=== PATIENT | male | born 1940 | race Caucasian/White ===

== ENCOUNTER 2020-05-03 14:36 | Inpatient (IN) | payer MEDICARE ==
[~2020-05-03] VITALS: Ht 180 cm; Wt 80.1 kg
[2020-05-03] VITALS (9 sets, daily range): BP systolic 105–132; BP diastolic 64–84
[2020-05-03] MEDS ORDERED: NITROGLYCERIN 2% OINT 1 GM UNIT DOSE PACKET ONE (14:58)
--- NOTE | 2020-05-03 14:58 | ED Chest Pain ---
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 He is a nonsmoker does have a history of extensive coronary disease and multiple stenting he denies cholesterol diabetes hypertension. Is not recently been ill with anything. 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 NTG SL WEB DEVELOPMENT INSTRUCTOR: No Associated Symptoms: No abdominal pain; back pain, diaphoresis; No fever/chills, No headache, No heartburn, No nausea/vomiting; shortness of breath; No syncope Allergies and Home Medications Allergies Uncoded Allergies: Pencillin (Adverse Reaction, Mild, rash, 05/03/20) Patient Home Medication List Home Medication List Reviewed: Yes Review of Systems Review of Systems Constitutional: no symptoms reported EENTM: No Symptoms Reported Respiratory: See HPI Cardiovascular: See HPI Gastrointestinal: No Symptoms Reported Genitourinary: No Symptoms Reported Musculoskeletal: no symptoms reported Skin: no symptoms reported Psychiatric/Neurological: No Symptoms Reported Past Eridgbo-Gpcfjh-Ycwhcv Hx Past Med/Social Hx: Reviewed Nursing Past Med/Soc Hx Physical Exam Vital Signs Vital Signs - First Documented 05/03/20 14:40 Temp 36.5 Pulse 69 Resp 18 B/P (MAP) 167/67 (100) Pulse Ox 97 O2 Delivery Room Air Capillary Refill : Height, Weight, BMI Height: '" Weight: lbs. oz. kg; BMI Method: General Appearance: No Apparent Distress, WD/WN HEENT: PERRL/EOMI, Normal ENT Inspection Neck: Full Range of Motion, Normal Inspection, Non Tender Respiratory: Chest Non Tender, Lungs Clear, Normal Breath Sounds, No Accessory Muscle Use, No Respiratory Distress Cardiovascular: Regular Rate, Rhythm, No Edema, No Gallop, No JVD, No Murmur, Normal Peripheral Pulses Gastrointestinal: Normal Bowel Sounds, No Organomegaly, No Pulsatile Mass, Non Tender Extremity: Normal Capillary Refill, Normal Inspection, Normal Range of Motion, Non Tender, No Calf Tenderness, No Pedal Edema Neurologic/Psychiatric: Alert, Oriented x3, No Motor/Sensory Deficits, Normal Mood/Affect Skin: Normal Color, Warm/Dry Lymphatic: No Adenopathy Progress/Results/Core Measures Results/Orders Lab Results Laboratory Tests Test 05/03/20 14:55 05/03/20 18:15 Range/Units White Blood Count 9.9 4.3-11.0 10^3/uL Red Blood Count 4.96 4.35-5.85 10^6/uL Hemoglobin 14.9 13.3-17.7 G/DL Hematocrit 44 40-54 % Mean Corpuscular Volume 88 80-99 FL Mean Corpuscular Hemoglobin 30 25-34 PG Mean Corpuscular Hemoglobin Concent 34 32-36 G/DL Red Cell Distribution Width 15.1 H 10.0-14.5 % Platelet Count 328 130-400 10^3/uL Mean Platelet Volume 9.2 7.4-10.4 FL Immature Granulocyte % (Auto) 0 % Neutrophils (%) (Auto) 72 42-75 % Lymphocytes (%) (Auto) 15 12-44 % Monocytes (%) (Auto) 10 0-12 % Eosinophils (%) (Auto) 2 0-10 % Basophils (%) (Auto) 1 0-10 % Neutrophils # (Auto) 7.1 1.8-7.8 X 10^3 Lymphocytes # (Auto) 1.5 1.0-4.0 X 10^3 Monocytes # (Auto) 1.0 0.0-1.0 X 10^3 Eosinophils # (Auto) 0.2 0.0-0.3 10^3/uL Basophils # (Auto) 0.1 0.0-0.1 10^3/uL Immature Granulocyte # (Auto) 0.0 0.0-0.1 10^3/uL Prothrombin Time 13.0 12.2-14.7 SEC INR Comment 1.0 0.8-1.4 Activated Partial Thromboplast Time 28 24-35 SEC Sodium Level 138 135-145 MMOL/L Potassium Level 4.3 3.6-5.0 MMOL/L Chloride Level 103 98-107 MMOL/L Carbon Dioxide Level 24 21-32 MMOL/L Anion Gap 11 5-14 MMOL/L Blood Urea Nitrogen 23 H 7-18 MG/DL Creatinine 1.04 0.60-1.30 MG/DL Estimat Glomerular Filtration Rate > 60 BUN/Creatinine Ratio 22 Glucose Level 97 70-105 MG/DL Calcium Level 9.3 8.5-10.1 MG/DL Corrected Calcium 9.1 8.5-10.1 MG/DL Magnesium Level 2.0 1.6-2.4 MG/DL Total Bilirubin 0.5 0.1-1.0 MG/DL Aspartate Amino Transf (AST/SGOT) 18 5-34 U/L Alanine Aminotransferase (ALT/SGPT) 12 0-55 U/L Alkaline Phosphatase 82 40-136 U/L Troponin I < 0.30 < 0.30 <0.30 NG/ML Pro-B-Type Natriuretic Peptide 339.7 H <75.0 PG/ML Total Protein 7.6 6.4-8.2 GM/DL Albumin 4.3 3.2-4.5 GM/DL Lipase 50 8-78 U/L My Orders Orders - WILSON,MAYCO B DO Nitroglycerin Ointment (Nitrobid Ointme (05/03/20 14:58) Cbc With Automated Diff (05/03/20 14:59) Magnesium (05/03/20 14:59) Chest 1 View Ap/Pa Only (05/03/20 14:59) Ekg Tracing (05/03/20 14:59) Comprehensive Metabolic Panel (05/03/20 14:59) Protime With Inr (05/03/20 14:59) Partial Thromboplastin Time (05/03/20 14:59) O2 (05/03/20 14:59) Monitor-Rhythm Ecg Trace Only (05/03/20 14:59) Ed Iv/Invasive Line Start (05/03/20 14:59) Lipase (05/03/20 14:59) Troponin I Fs (05/03/20 14:59) Probnp Fs (05/03/20 14:59) Troponin I Fs (05/03/20 17:00) Nitroglycerin Ointment (Nitrobid Ointme (05/03/20 15:00) Morphine Injection (Morphine Injection (05/03/20 17:25) Morphine Injection (Morphine Injection (05/03/20 17:25) Heparin (Bolus Per Protocol) (Heparin (B (05/03/20 17:45) Ticagrelor Tablet (Brilinta Tablet) (05/03/20 17:45) Nitro Drip 41798 Mcg/D5w (Nitroglycerin (05/03/20 17:45) Heparin Drip 99012 Unit/500ml (Heparin (05/03/20 17:38) Heparin (Bolus Per Protocol) (Heparin (B (05/03/20 17:38) Medications Given in ED Current Medications Medications Dose Ordered Sig/Susie Route Start Time Stop Time Status Last Admin Dose Admin Heparin Sodium (Porcine) HEPARIN BOLUS ACS PROTOC... 1738 ONCE IV 05/03/20 17:38 05/03/20 17:40 DC 05/03/20 17:58 5,000 UNIT Heparin Sodium/ Dextrose 500 ml @ 0 mls/hr Q0M ONCE IV 05/03/20 17:38 05/03/20 17:40 DC 05/03/20 18:01 20 MLS/HR Morphine Sulfate 10 mg STK-MED ONCE .ROUTE 05/03/20 17:25 05/03/20 17:27 DC 05/03/20 17:29 10 MG Nitroglycerin 1 inch ONCE ONCE TOP 05/03/20 15:00 05/03/20 15:03 DC 05/03/20 15:10 1 INCH Ticagrelor 180 mg ONCE ONCE PO 05/03/20 17:45 05/03/20 17:46 DC 05/03/20 17:57 180 MG Vital Signs/I&O 05/03/20 05/03/20 05/03/20 05/03/20 14:40 14:40 17:56 18:09 Temp 36.5 36.2 Pulse 69 65 67 Resp 18 18 B/P (MAP) 167/67 (100) 115/63 111/63 Pulse Ox 97 98 O2 Delivery Room Air Room Air Room Air Progress Progress Note : Progress Note [id number] patient 79-year-old with history of severe coronary disease presents with 2 episodes of chest pain today this latest one was still ongoing discomfort mild radiates into both arms with diaphoresis shortness of breath does radiate into his back. Differential most likely ACS possible GERD no evidence of her wrist red flags for TAA plan will be troponin and EKG risk stratification transfer for admission. Initial ECG Impression Date: May 03, 2020 Initial ECG Impression Time: 14:44 Initial ECG Rhythm: Normal Sinus Initial ECG Impression: Nonspecific Changes Comment EKG 1444 sinus rhythm at 67 there is a nondiagnostic interventricular conduction delay which she features right bundle branch block properties there is no ST segment elevation there is evidence of old inferior SC. There is no old tracing for comparison. Departure Communication (Admissions) Patient is an 79-year-old with chest pain 2 episodes radiating down his arms as diaphoresis second episode failing to go away with rest t-test taken multiple aspirins today for this without relief here he had 3 out of 10 chest pain initially blood pressure 160 was given nitro paste this resolved all his symptoms. EKG has right bundle branch block with nondiagnostic changes a stirrup first troponin is normal. Heart score is but Simmon the moderate range of 4+ therefore he will be referred for admission initially the patient had requested [facility] they were contacted at 1610 with no beds he then wanted to go to [facility] they were contacted at 1620 they had no beds after further discussion the patient declined to go to [facility] or [facility] and was agreeable to go to [facility]. Impression Primary Impression: Unstable angina pectoris Disposition: 09 ADMITTED INPATIENT Condition: Improved Admissions Decision to Admit Reason: Admit from ER (General) Decision to Admit/Date: May 03, 2020 Time/Decision to Admit Time: 16:31 Transfer Transfer Reason: Exceeds level of care Time Spoke to Accepting Phy: 16:31 Transfer Progress Notes 1635 return call excepts an admission request cardiology consultation for further medical management Left page message for Dr. Michelle and to return my [id number] Transfer Facility: [facility] Method of Transfer: EMS Departure-Patient Inst. Decision time for Depature: 16:30 MAYCO WILSON DO May 03, 2020 14:58
[2020-05-03] MEDS ORDERED: NITROGLYCERIN 2% OINT 1 GM UNIT DOSE PACKET TOP ONE (15:00)
--- NOTE | 2020-05-03 15:20 | Diagnostic Imaging Report ---
INDICATION: Chest pain, back pain. EXAMINATION: Single view of the chest was obtained. FINDINGS: There is no alveolar consolidation. Heart size within normal limits. There is borderline vascular congestion. There is mild symmetrical air trapping. There is some scattered calcified pulmonary granulomata. Hilar and mediastinal contours unremarkable. There is no free air beneath the diaphragms. IMPRESSION: Air trapping and likely COPD but no acute appearing cardiopulmonary abnormality. Dictated by: Dictated on workstation # [id number]
[2020-05-03 15:23] LABS: BASOPHILS # (AUTO) 0.1 10^3/uL (0.0-0.1); BASOPHILS % (AUTO) 1 % (0-10); EOSINOPHILS # (AUTO) 0.2 10^3/uL (0.0-0.3); EOSINOPHILS % (AUTO) 2 % (0-10); HEMATOCRIT 44 % (40-54); HEMOGLOBIN 14.9 G/DL (13.3-17.7); LYMPHOCYTES # (AUTO) 1.5 X 10^3 (1.0-4.0); LYMPHOCYTES % (AUTO) 15 % (12-44); MEAN CORPUSCULAR HEMOGLOBIN 30 PG (25-34); MEAN CORPUSCULAR HGB CONC 34 G/DL (32-36); MEAN CORPUSCULAR VOLUME 88 FL (80-99); MEAN PLATELET VOLUME 9.2 FL (7.4-10.4); MONOCYTES % (AUTO) 10 % (0-12); NEUTROPHILS # (AUTO) 7.1 X 10^3 (1.8-7.8); NEUTROPHILS % (AUTO) 72 % (42-75); PLATELET COUNT 328 10^3/uL (130-400); WHITE BLOOD COUNT 9.9 10^3/uL (4.3-11.0)
[2020-05-03 15:41] LABS: BUN/CREATININE RATIO 22; CALCIUM 9.3 MG/DL (8.5-10.1); CARBON DIOXIDE 24 MMOL/L (21-32); CHLORIDE 103 MMOL/L (98-107); CREATININE SERUM 1.04 MG/DL (0.60-1.30); GFR ESTIMATED > 60; GLUCOSE 97 MG/DL (70-105); POTASSIUM 4.3 MMOL/L (3.6-5.0); SODIUM 138 MMOL/L (135-145)
[2020-05-03 15:42] LABS: ALANINE AMINOTRANSFERASE 12 U/L (0-55); ALBUMIN 4.3 GM/DL (3.2-4.5); ALKALINE PHOSPHATASE 82 U/L (40-136); BILIRUBIN,TOTAL 0.5 MG/DL (0.1-1.0); LIPASE 50 U/L (8-78); TOTAL PROTEIN 7.6 GM/DL (6.4-8.2)
[2020-05-03] MEDS ORDERED: morphine INJ 10 MG/ML 1ML (SYR OR VIAL) ONE (17:25)
[2020-05-03] MEDS ORDERED: morphine INJ 10 MG/ML 1ML (SYR OR VIAL) IVP STA (17:25)
[2020-05-03] MEDS ORDERED: HEParin 1000 UNIT/ML (10ML VIAL) FOR BOLUS IV ONE (17:38)
[2020-05-03] MEDS ORDERED: HEParin DRIP 25000 UNIT/500ML 500 ML IV ONE (17:38)
[2020-05-03] MEDS ORDERED: TICAGRELOR 90 MG TABLET (BRILINTA) PO ONE (17:45)
[2020-05-03] MEDS ORDERED: HEParin 1000 UNIT/ML (10ML VIAL) FOR BOLUS IV SCH (17:45)
[2020-05-03] MEDS ORDERED: NITRO DRIP 25000 MCG/D5W 250 ML IV SCH (17:45)
[2020-05-03] MEDS ORDERED: HEParin DRIP 25000 UNIT/500ML 500 ML IV SCH (20:27)
[2020-05-03] MEDS ORDERED: HEParin 1000 UNIT/ML (10ML VIAL) FOR BOLUS IV PRN (20:30)
[2020-05-03] MEDS ORDERED: RT-ALBUTEROL SULF 2.5 MG/3 ML PRE-MIX VIAL INH PRN (20:30)
[2020-05-04] VITALS (26 sets, daily range): BP systolic 94–139; BP diastolic 50–96
[2020-05-04] MEDS: NITROGLYCERIN DRIP 25 MG/250 ML D5W (PRE-MIX) IV SCH ×2 (00:12→20:16)
[2020-05-04] MEDS ORDERED: LIDOCAINE UROJET 2% GEL 10 ML PKG ONE (00:28)
[2020-05-04] MEDS ORDERED: LIDOCAINE UROJET 2% GEL 10 ML PKG TOP ONE (02:45)
[2020-05-04] MEDS ORDERED: diphenhydrAMINE 50 MG/ML INJ (BENADRYL) IVP ONE (02:45)
[2020-05-04 03:58] LABS: BASOPHILS # (AUTO) 0.1 10^3/uL (0.0-0.1); BASOPHILS % (AUTO) 1 % (0-10); EOSINOPHILS # (AUTO) 0.1 10^3/uL (0.0-0.3); EOSINOPHILS % (AUTO) 1 % (0-10); HEMATOCRIT 40 % (40-54); HEMOGLOBIN 13.1 g/dL (13.3-17.7); LYMPHOCYTES # (AUTO) 1.4 10^3/uL (1.0-4.0); LYMPHOCYTES % (AUTO) 12 % (12-44); MEAN CORPUSCULAR HEMOGLOBIN 30 pg (25-34); MEAN CORPUSCULAR HGB CONC 33 g/dL (32-36); MEAN CORPUSCULAR VOLUME 90 fL (80-99); MEAN PLATELET VOLUME 9.1 fL (9.0-12.2); MONOCYTES # (AUTO) 0.9 10^3/uL (0.0-1.0); MONOCYTES % (AUTO) 8 % (0-12); NEUTROPHILS # (AUTO) 9.5 10^3/uL (1.8-7.8); NEUTROPHILS % (AUTO) 79 % (42-75); PLATELET COUNT 255 10^3/uL (130-400)
--- NOTE | 2020-05-04 04:04 | Pulmonary Consultation ---
History of Present Illness History of Present Illness Date Seen by Provider: May 04, 2020 Time Seen by Provider: 04:02 Date of Admission Allergies and Home Medications Allergies Uncoded Allergies: Pencillin (Adverse Reaction, Mild, rash, 05/03/20) Past Oltugwf-Aimioc-Srgrpa Hx Past Med/Social Hx: Reviewed Nursing Past Med/Soc Hx Patient Social History Alcohol Use: Denies Use Recreational Drug Use: No Smoking Status: Never a Smoker Recent Foreign Travel: No Contact w/Someone Who Travel: No Recent Infectious Disease Expo: No Recent Hopitalizations: No Physical Abuse: No Sexual Abuse: No Mistreated: No Fear: No Immunizations Up To Date Date of Pneumonia Vaccine: Mar 07, 2017 Seasonal Allergies Seasonal Allergies: No Past Medical History Surgeries: Yes Coronary Stent Respiratory: No Cardiac: No Neurological: No Genitourinary: No Gastrointestinal: No Musculoskeletal: No Endocrine: No HEENT: No Cancer: No Psychosocial: No Integumentary: No Blood Disorders: No Review of Systems Time Seen by Provider: 04:02 Sepsis Event Evaluation Height, Weight, BMI Height: '" Weight: lbs. oz. kg; 25.37 BMI Method: Exam Exam Vital Signs Date Time Temp Pulse Resp B/P (MAP) Pulse Ox O2 Delivery O2 Flow Rate FiO2 05/04/20 03:31 36.9 05/04/20 01:00 60 05/04/20 00:00 98 Room Air 05/03/20 23:20 36.6 05/03/20 20:16 98 Room Air 05/03/20 20:09 67 98 05/03/20 19:38 66 05/03/20 18:09 36.2 67 18 111/63 98 Room Air 05/03/20 17:56 65 115/63 05/03/20 14:40 36.5 69 18 167/67 (100) 97 Room Air 05/03/20 14:40 Room Air I & O 05/04/20 07:00 Intake Total 200 ml Output Total 400 ml Balance -200 ml Height & Weight Height: '" Weight: lbs. oz. kg; 25.37 BMI Method: General Appearance: No Apparent Distress, WD/WN HEENT: PERRL/EOMI, Normal ENT Inspection Neck: Full Range of Motion, Normal Inspection, Non Tender Respiratory: Chest Non Tender, Lungs Clear, Normal Breath Sounds, No Accessory Muscle Use, No Respiratory Distress Cardiovascular: Regular Rate, Rhythm, No Edema, No Gallop, No JVD, No Murmur, Normal Peripheral Pulses Capillary Refill: Less Than 3 Seconds Extremity: Normal Capillary Refill, Normal Inspection, Normal Range of Motion, Non Tender, No Calf Tenderness, No Pedal Edema Neurologic/Psychiatric: Alert, Oriented x3, No Motor/Sensory Deficits, Normal Mood/Affect Skin: Normal Color, Warm/Dry Lymphatic: No Adenopathy Results Lab Laboratory Tests 05/03/20 14:55 Assessment/Plan Assessment/Plan Acute CP r/o USA -- CP improved with Nitro -Troponin neg x 2 -Currently on Hep and nitro gtt . -Currently on RA HX of CAD BANDAR ROLON DO May 04, 2020 04:04
[2020-05-04 04:06] LABS: CHLORIDE 104 MMOL/L (98-107); POTASSIUM 3.7 MMOL/L (3.6-5.0); SODIUM 138 MMOL/L (135-145)
[2020-05-04 04:07] LABS: CALCIUM 8.8 MG/DL (8.5-10.1)
[2020-05-04 04:08] LABS: GLUCOSE 137 MG/DL (70-105)
[2020-05-04 04:09] LABS: CARBON DIOXIDE 24 MMOL/L (21-32)
[2020-05-04 04:11] LABS: PHOSPHORUS 3.2 MG/DL (2.3-4.7)
[2020-05-04 04:12] LABS: BUN/CREATININE RATIO 25; CREATININE SERUM 0.93 MG/DL (0.60-1.30); GFR ESTIMATED > 60
[2020-05-04 04:14] LABS: MAGNESIUM 2.1 MG/DL (1.6-2.4)
[2020-05-04] MEDS ORDERED: FLU QUAD HIGH DOSE 240 MCG/0.7 ML 2020-21 (FLUZONE) IM ONE (07:00)
[2020-05-04] MEDS: ASPIRIN 81 MG CHEW (CHILDREN'S ASA) PO SCH ×2 (09:05→11:37)
[2020-05-04] MEDS: TICAGRELOR 90 MG TABLET (BRILINTA) PO SCH ×3 (09:05→20:17)
--- NOTE | 2020-05-04 09:56 | History & Physical-Hospitalist ---
History of Present Illness HPI/Chief Complaint Pt is a 79-year-old male with past medical history of coronary artery disease status post multiple stents who presented to the emergency department due to chest pain. he states 2 days ago he did a lot of heavy lifting lifting something up to 150 pounds. 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 He states it radiated to his back he was diaphoretic and short of breath. This prompted him to seek evaluation in the emergency department. His pain resolved with nitroglycerin and morphine. he states he is currently mostly pain-free. His only request now is to have something to drink. Source: patient Date Seen 05/04/20 Time Seen by a Provider: 09:50 Attending Physician Vincent Michelle MD PCP No,Local Physician Referring Physician Date of Admission May 03, 2020 at 19:38 Home Medications & Allergies Home Medications Reviewed patient Home Medication Reconciliation performed by pharmacy medication reconciliations solar installer technician and/or nursing. Patients Allergies have been reviewed. Allergies Allergies Uncoded Allergies Pencillin ( Adverse Reaction, Mild, rash, 05/03/20) Past Ovqwnhb-Kubwrz-Gbnaya Hx Past Med/Social Hx: Reviewed Nursing Past Med/Soc Hx Patient Social History Alcohol Use: Denies Use Recreational Drug Use: No Smoking Status: Never a Smoker Recent Foreign Travel: No Contact w/other who traveled: No Recent Hopitalizations: No Recent Infectious Disease Expo: No Immunizations Up To Date Date of Pneumonia Vaccine: Mar 07, 2017 Seasonal Allergies Seasonal Allergies: No Past Medical History Surgeries: Coronary Stent Cardiac: Coronary Artery Disease History of Blood Disorders: No Family History Reviewed Nursing Family Hx Review of Systems Constitutional: No chills; diaphoresis; No fever Respiratory: see HPI, short of breath Cardiovascular: chest pain; No edema; Hx of Intervention; No palpitations Gastrointestinal: abdominal pain; No constipation, No diarrhea, No nausea, No vomiting Genitourinary: no symptoms reported Musculoskeletal: no symptoms reported Skin: no symptoms reported Psychiatric/Neurological: No Symptoms Reported Physical Exam Physical Exam Vital Signs Vital Signs - First Documented 05/03/20 14:40 Temp 36.5 Pulse 69 Resp 18 B/P (MAP) 167/67 (100) Pulse Ox 97 O2 Delivery Room Air Capillary Refill : Less Than 3 Seconds Height, Weight, BMI Height: '" Weight: lbs. oz. kg; 25.37 BMI Method: General Appearance: No Apparent Distress, WD/WN HEENT: PERRL/EOMI, Moist Mucous Membranes Neck: Normal Inspection, Supple Respiratory: Lungs Clear, No Accessory Muscle Use, No Respiratory Distress Cardiovascular: Regular Rate, Rhythm, No Murmur Gastrointestinal: Normal Bowel Sounds, Non Tender, Soft Extremity: Normal Capillary Refill, No Calf Tenderness, No Pedal Edema Neurologic/Psychiatric: Alert, Oriented x3, Normal Mood/Affect Skin: Normal Color, Warm/Dry Results Results/Procedures Labs Laboratory Tests 05/03/20 14:55 05/04/20 03:45 Patient resulted labs reviewed. Imaging: Reviewed Imaging Report Imaging [facility], [place] NAME: CHAITANYA MILLER [facility] REC#: [id number] PT STATUS: REG ER : 1940 PHYSICIAN: MAYCO WILSON DO ADMIT DATE: 05/03/20/ER FS Signed Date of Exam:05/03/20 CHEST 1 VIEW AP/PA ONLY INDICATION: Chest pain, back pain. EXAMINATION: Single view of the chest was obtained. FINDINGS: There is no alveolar consolidation. Heart size within normal limits. There is borderline vascular congestion. There is mild symmetrical air trapping. There is some scattered calcified pulmonary granulomata. Hilar and mediastinal contours unremarkable. There is no free air beneath the diaphragms. IMPRESSION: Air trapping and likely COPD but no acute appearing cardiopulmonary abnormality. Dictated by: Dictated on workstation # [id number] Dict: 05/03/20 1514 Trans: 05/03/20 1526 [facility] [id number] Interpreted by: CHAITANYA BILLINGSLEY Electronically signed by: CHAITANYA BILLINGSLEY 05/03/20 1526 Assessment/Plan Admission Diagnosis Chest pain Admission Status: Inpatient Order (span 2 midnights) Reason for Inpatient Admission: see below Assessment and Plan Chest pain CAD Cardiology consulted, appreciate recs DAPT ordered Nitro and heparin gtt ordered troponin negative x2 Echo pending DVt ppx: Lovenox gtt Clinical Quality Measures AMI/AHF: ASA po Prior to arrival: Yes DVT/VTE Risk/Contraindication: Risk Factor Score Per Nursin RFS Level Per Nursing on Admit: 4+=Very High VINCENT MICHELLE MD May 04, 2020:56
[2020-05-04] MEDS ORDERED: PANTOPRAZOLE 40 MG (PROTONIX) VIAL IV ONE (10:15)
--- NOTE | 2020-05-04 10:23 | Diagnostic Imaging Report ---
EXAMINATION: Chest radiograph, portable AP view. DATE: 05/04/2020 3:48 AM hours. INDICATION: 79-year-old male, chest pain. COMPARISON: May 03, 2020. FINDINGS: Stable overall appearance of the cardiomediastinal silhouette. There is no identified pneumothorax. There is no large pleural effusion. There is no identified focal airspace consolidation. IMPRESSION: No identified acute cardiopulmonary abnormality. Dictated by: Dictated on workstation # [id number]
[2020-05-04] MEDS ORDERED: HEParin (CATH LAB) 2,000 ML IV ONE (11:02)
[2020-05-04] MEDS ORDERED: LIDOCAINE 1% INJ 20 ML 20 ML VIAL ONE (11:02)
[2020-05-04] MEDS ORDERED: MIDAZOLAM 5 MG/5 ML (VERSED) VIAL ONE (11:05)
[2020-05-04] MEDS ORDERED: fentaNYL INJECTION 100 MCG/2 ML AMP ONE (11:05)
--- NOTE | 2020-05-04 11:20 | NUR ---
Dr. Jimenez in room with pt explaining risks/benefits of heart cath to pt. Heart Cath team arrived, obtained consent from pt and took pt down to labor relations supervisor.
[2020-05-04] MEDS ORDERED: NS IV 1000 ML 1,000 ML ONE (11:28)
[2020-05-04] MEDS ORDERED: HEParin 1000 UNIT/ML (10ML VIAL) FOR BOLUS ONE (11:28)
[2020-05-04] MEDS ORDERED: VERAPAMIL 5 MG/2 ML (CALAN) VIAL IV ONE (11:28)
[2020-05-04] MEDS ORDERED: NITRO DRIP 25000 MCG/D5W 250 ML IV ONE (11:29)
[2020-05-04] MEDS ORDERED: NS IV 1000 ML 1,000 ML IV SCH (11:45)
[2020-05-04] MEDS ORDERED: TICAGRELOR 90 MG TABLET (BRILINTA) PO ONE (12:23)
[2020-05-04] MEDS ORDERED: EPTIFIBATIDE BOLUS 20 ML IV ONE (12:36)
[2020-05-04] MEDS ORDERED: niCARdipine 25 MG/10 ML (CARDENE) AMP IV ONE (12:38)
[2020-05-04] MEDS ORDERED: NS (IVPB) 250 ML ONE (12:38)
[2020-05-04] MEDS ORDERED: EPTIFIBATIDE DRIP 100 ML IV ONE (12:50)
--- NOTE | 2020-05-04 12:58 | Cardiac Procedure Note-CS/ASA ---
Pre-Procedure Note Pre-Op Procedure Note H&P Reviewed The H&P was reviewed, patient examined and no changes noted. Date H&P Reviewed: May 04, 2020 Time H&P Reviewed: 11:30 Conscious Sedation Pre-Proced Time 11:30 ASA Score 3 For ASA 3 and 4: Consider anesthesia and medical clearance. Also, for patients with a history of failed moderate sedation consider anesthesia. Airway Lungs Heart ASA score ASA 1: a normal healthy patient ASA 2: a patient with a mild systemic disease (mid diabetes, controlled hypertension, obesity ASA 3: a patient with a severe systemic disease that limits activity (angina, COPD, prior Myocardial infarction) ASA 4: a patient with an incapacitating disease that is a constant threat to life (CHF, renal failure) ASA 5: a moribund patient not expected to survive 24 hrs. (ruptured aneurysm) ASA 6: a declared brain- patient whose organs are being harvested. For emergent operations, add the letter E after the classification Mallampati Classification Grade 1 Sedation Plan Analgesia, Amnesia, Plan communicated to team members, Discussed options with patient/fam, Discussed risks with patient/fam The patient is an appropriate candidate to undergo the planned procedure, sedation, and anesthesia. The patient immediately re-assessed prior to indication. Melinda BROWER MD May 04, 2020 12:58
--- NOTE | 2020-05-04 12:58 | Consultation-Cardiology ---
HPI-Cardiology Cardiology Consultation: Date of Consultation 05/04/20 Date of Admission Attending Physician Lillie Michelle MD Admitting Physician No,Local Physician Consulting Physician Melinda JIMENEZ MD HPI: Time Seen by a Provider: 11:30 Chief Complaint: chest pain This is a 79 year old male patient of Dr Garcia from [place] who presented with prolonged episode of Chest pain with diaphoresis and radiation to both arms. Initial severe pain, 9 to 10/10 which improved with nitroglycerin and morphine. substernal associated shortness of breath. Initially started with exertion. He denies active smoking. No pertinent family history. He does have history of CAD with multiple stents. initially chest pain improved with nitroglycerin and morphine, however he continued to have mild discomfort overnight therefore was given aspirin, Brili nta bolus, heparin infusion and nitroglycerin infusion and transferred to the ICU. First 2 sets troponin were negative Review of Systems-Cardiology Review of Systems Constitutional: As described under HPI; No As described under HPI, No no symptoms reported, No chills, No fever, No lightheadedness Eyes: No As described under HPI, No no symptoms reported, No blindness, No blurred vision, No contact lenses, No drainage, No decreased acuity, No foreign body sensation, No pain, No vision change Ears/Nose/Throat: No As described under HPI, No no symptoms reported, No chronic hearing loss, No ear discharge, No ear pain, No nasal drainage, No ulcerations Respiratory: No no symptoms reported; As described under HPI; No As described under HPI, No cough, No orthopnea; shortness of breath; No SOB with excertion Cardiovascular: No no symptoms reported; As described under HPI; No As describ ed under HPI; chest pain; No edema, No irregular heart rate, No lightheadedness, No palpitations Gastrointestinal: No no symptoms reported, No As described under HPI, No abdomen distended, No abdominal pain, No blood streaked bowels, No constipation, No diarrhea, No nausea, No vomiting, No stool coloration changes Genitourinary: No As described under HPI, No burning, No dysuria, No discharge, No frequency, No flank pain, No hematuria, No urgency Skin: No rash, No skin related problems, No ulcerations Psychiatric/Neurological: No anxiety, No depression, No seizure, No focal weakness, No syncope Hematologic: No bleeding abnormalities [id number] Hx Patient Social History Alcohol Use: Denies Use Recreational Drug Use: No Smoking Status: Never a Smoker Recent Foreign Travel: No Recent Infectious Disease Expo: No Hospitalization with Isolation: Denies Immunizations Up To Date Date of Pneumonia Vaccine: Mar 07, 2017 Past Medical History PMH As described under Assessment. Allergies and Home Medications Allergies Uncoded Allergies: Pencillin (Adverse Reaction, Mild, rash, 05/03/20) Patient Home Medication List Home Medication List Reviewed: Yes Physical Exam-Cardiology Physical Exam Vital Signs/I&O 05/04/20 05/04/20 05/04/20 05/04/20 02:00 03:00 03:31 04:00 Temp 36.9 Pulse 67 64 65 Resp 20 15 13 B/P (MAP) 100/59 (73) 101/60 (74) 105/61 (76) Pulse Ox 94 95 95 O2 Delivery Room Air Room Air Room Air 05/04/20 05/04/20 05/04/20 05/04/20 04:00 05:00 06:00 07:00 Pulse 61 62 71 Resp 18 20 B/P (MAP) 97/64 (75) 102/63 (76) Pulse Ox 98 96 96 O2 Delivery Room Air Room Air Room Air 05/04/20 05/04/20 05/04/20 05/04/20 07:00 07:45 08:00 08:00 Temp 37.2 Pulse 60 70 Resp 26 28 B/P (MAP) 94/50 (65) 110/88 (95) Pulse Ox 98 96 O2 Delivery Room Air Room Air Room Air 05/04/20 05/04/20 05/04/20 05/04/20 08:00 09:00 10:00 11:00 Pulse 68 69 66 Resp 11 16 9 B/P (MAP) 98/51 (67) 112/59 (76) 122/96 (105) Pulse Ox 98 94 94 96 O2 Delivery Room Air Room Air Room Air Room Air 05/04/20 00:00 Intake Total 200 ml Output Total 0 ml Balance 200 ml Capillary Refill : Less Than 3 Seconds Constitutional: appears stated age, AAO x 3; No apparent distress; well- developed, well-nourished HEENT: PERRL; No discharge; hearing is well preserved, oral hygience is good; No ulceration, No xanthelasmas are seen Neck: No carotid bruit; carotid pulses are 2 + bilaterally Respiratory: chest is bilaterally symmetric, lungs clear to auscultation Cardiovascular: regular rate-rhythm, S1 and S2; No diastolic murmur, No systolic murmur Gastrointestinal: soft, audible bowel sounds; No spleenomegaly Rectal: deferred Extremities: normal range of motion, non-tender, normal inspection; No clubbing, No cyanosis; no lower extremity edema bilateral; No significant edema Neurologic/Psychiatric: no motor/sensory deficits, alert, normal mood/affect, oriented x 3, power is 5/5 both on sides Skin: normal color; No rash, No ulcerations Data Review Labs Laboratory Tests 05/03/20 14:55: White Blood Count 9.9, Red Blood Count 4.96, Hemoglobin 14.9, Hematocrit 44, Mean Corpuscular Volume 88, Mean Corpuscular Hemoglobin 30, Mean Corpuscular Hemoglobin Concent 34, Red Cell Distribution Width 15.1H, Platelet Count 328, Mean Platelet Volume 9.2, Immature Granulocyte % (Auto) 0, Neutrophils (%) (Auto) 72, Lymphocytes (%) (Auto) 15, Monocytes (%) (Auto) 10, Eosinophils (%) (Auto) 2, Basophils (%) (Auto) 1, Neutrophils # (Auto) 7.1, Lymphocytes # (Auto) 1.5, Monocytes # (Auto) 1.0, Eosinophils # (Auto) 0.2, Basophils # (Auto) 0.1, Immature Granulocyte # (Auto) 0.0, Prothrombin Time 13.0, INR Comment 1.0, Activated Partial Thromboplast Time 28, Sodium Level 138, Potassium Level 4.3, Chloride Level 103, Carbon Dioxide Level 24, Anion Gap 11, Blood Urea Nitrogen 23H, Creatinine 1.04, Estimat Glomerular Filtration Rate > 60, BUN/Creatinine Ratio 22, Glucose Level 97, Calcium Level 9.3, Corrected Calcium 9.1, Magnesium Level 2.0, Total Bilirubin 0.5, Aspartate Amino Transf (AST/SGOT) 18, Alanine Aminotransferase (ALT/SGPT) 12, Alkaline Phosphatase 82, Troponin I < 0.30, Pro-B-Type Natriuretic Peptide 339.7H, Total Protein 7.6, Albumin 4.3, Lipase 50 05/03/20 18:15: Troponin I < 0.30 05/03/20 22:02: Activated Partial Thromboplast Time 76H 05/04/20 03:45: White Blood Count 12.0H, Red Blood Count 4.44, Hemoglobin 13.1L, Hematocrit 40, Mean Corpuscular Volume 90, Mean Corpuscular Hemoglobin 30, Mean Corpuscular Hemoglobin Concent 33, Red Cell Distribution Width 14.8H, Platelet Count 255, Mean Platelet Volume 9.1, Immature Granulocyte % (Auto) 0, Neutrophils (%) (Auto) 79H, Lymphocytes (%) (Auto) 12, Monocytes (%) (Auto) 8, Eosinophils (%) (Auto) 1, Basophils (%) (Auto) 1, Neutrophils # (Auto) 9.5H, Lymphocytes # (Auto) 1.4, Monocytes # (Auto) 0.9, Eosinophils # (Auto) 0.1, Basophils # (Auto) 0.1, Immature Granulocyte # (Auto) 0.0, Activated Partial Thromboplast Time 59H, Sodium Level 138, Potassium Level 3.7, Chloride Level 104, Carbon Dioxide Level 24, Anion Gap 10, Blood Urea Nitrogen 23H, Creatinine 0.93, Estimat Glomerular Filtration Rate > 60, BUN/Creatinine Ratio 25, Glucose Level 137H, Calcium Level 8.8, Magnesium Level 2.1, Troponin I 10.972*H, Phosphorus Level 3.2 ECG Impression ECG Initial ECG Rhythm: Normal Sinus Comment inferior Q waves. ST depressions in the anterior precordial leads. A/P-Cardiology Assessment/Admission Diagnosis non-STEMI, Plan non-STEMI, refractory to IV nitroglycerin and heparin infusion. First 2 troponin sets were negative however the third set was significantly elevated. I spoke at length with the patient and recommended coronary angiography with possible intervention. 1-1-1/2 percent risk of complication including OR and d eath were discussed with the patient. He accepted all risks and will like to proceed with coronary angiography and possible intervention. Echocardiogram. Thank you for your consultation. Please call me if you have any questions. William Jimenez MD, FACP, FACC, FSCAI, FHRS, CCDS Interventional Cardiology Cardiac Electrophysiology Vascular Medicine and Endovascular Interventions Clinical Quality Measures AMI/AHF: ASA po Prior to arrival: Yes DVT/VTE Risk/Contraindication: Risk Factor Score Per Nursin RFS Level Per Nursing on Admit: 4+=Very High Melinda JIMENEZ MD May 04, 2020 12:58
--- NOTE | 2020-05-04 12:59 | Coronary Angiography & PCI ---
Coronary Angiography & PCI DATE OF PROCEDURE: 05/04/20 INDICATION: non-STEMI PREOPERATIVE DIAGNOSIS: non STEMI POSTOPERATIVE DIAGNOSIS: severe OM 2 stenosis treated with 2 drug-eluting stents. HISTORY: 79-year-old gentleman with non-STEMI. Therefore, the patient was scheduled for coronary angiography. PROCEDURES PERFORMED: 1.Coronary angiography. 2.Left heart catheterization. 3.PCI to the OM 2 with 2 drug-eluting stents. COMPLICATIONS: None. SPECIMENS: None. ESTIMATED BLOOD LOSS: 10 mL ANESTHESIA: Conscious sedation ANTICOAGULATION: IV heparin CONTRAST: 140 mL. FLUOROSCOPY: 7.3 minutes. FLOUROSCOPY DOSE: 1156 mgy. PROCEDURE DETAILS: The patient is a 79 male and was brought to the [facility] after informed consent was taken. All the risks and complications were explained in detail; this included the risk of bleeding, vascular damage, stroke, [place] and even . The patient was draped and prepped in the usual sterile fashion. we first tried to gain access in the right radial artery however we were unsuccessful. Access was gained in the right femoral artery with a 6 Chinese sheath. Coronary angiography and left heart catheterization was performed with the JR4 and JL4 catheter. FINDINGS: 1.Left main: mild disease. 2.LAD: mild diffuse disease. A first diagonal artery has moderate to severe stenosis in the proximal aspect. Stenosis severity 70 percent. 3.Left circumflex artery: patent stent in the first OM artery with mild diffuse disease distally. Second OM artery has a patent stent however just distal to the stent there is subtotal occlusion with haziness. This is the culprit artery. 4.RCA: numerous stents with moderate in-stent restenosis. 5.Left heart catheterization: aortic pressure 111/58 mmHg. LV pressure 104/2 mmHg. LVEDP 17 mmHg. LV gram not done. RECOMMENDATIONS: PCI to OM 2 is recommended. INTERVENTION DETAILS: JL4 guide catheter, whisper extra-support guidewire, IV heparin for anticoagulation. ACT 250 seconds. we crossed the lesion with the whisper wire. The tip of the wire was placed in the distal OM 2. Direct stenting with a xience Tori 2.5 x 15 mm drug-eluting stent at 9 rodger for 26 seconds. overlap with the previous stent. Overlap area was postdilated at 18 rodger for 30 seconds. slow reflow with distal embolization and ST elevation noted. IC nitroglycerin did not improve. IC Cardene given 2. Integrilin double bolus given followed by IV infusion. Haziness noted at the edge of the stent. another science Tori 2.25 x 15 mm stent was done at 9 rodger for 15 seconds. Overlap area postdilated at 14 rodger for 6 seconds. Significant improvement in flow with no residual stenosis. However distal embolization still noted. CARRI-3 flow. Therefore we decided to stop. Resolution of ST elevation and no further chest pain. Patient was sent to the floor with stable hemodynamics. CONCLUSIONS: 1. non-STEMI refractory to medical therapy, culprit artery OM 2, treated with 2 drug-eluting stents. 2. Slow reflow phenomenon with distal embolization, improved with intra coronary Cardene. 3. Overnight Integrilin. Long-term dual antiplatelet therapy. 4. Echocardiogram. 5. Once patient is ready for discharge, he will follow with outpatient laborer syrup machine. 6. Moderate to severe first diagonal artery stenosis will be treated medically. William Jimenez MD, FACP, FACC, [facility] Interventional Cardiology Melinda JIMENEZ MD May 04, 2020 12:59
[2020-05-04] MEDS ORDERED: PATIENT MAY USE OWN MEDS, ALL PO SCH (13:00)
[2020-05-04] MEDS ORDERED: EPTIFIBATIDE DRIP 100 ML IV SCH (14:00)
[2020-05-04] MEDS: NS IV 1000 ML 1,000 ML IV SCH ×2 (16:49→23:34)
[2020-05-04] MEDS: EPTIFIBATIDE DRIP 100 ML IV SCH ×2 (18:54→21:37)
[2020-05-05] VITALS (13 sets, daily range): BP systolic 107–136; BP diastolic 62–85
[2020-05-05] MEDS: NS IV 1000 ML 1,000 ML IV SCH (02:09)
[2020-05-05] MEDS: EPTIFIBATIDE DRIP 100 ML IV SCH (02:31)
--- NOTE | 2020-05-05 03:33 | Pulmonary Progress Note ---
SONIDOJANE MED STUDENT 05/05/20 0333: Subjective Date Seen by a Provider: May 05, 2020 Time Seen by a Provider: 03:40 Subjective/Events-last exam Patient states he feels much better, was sleeping comfortably. Denies CP, tachycardia, SOB, wheezing, abdominal pain, nausea, vomiting or any other pain at this time. Sepsis Event Evaluation Height, Weight, BMI Height: '" Weight: lbs. oz. kg; 25.37 BMI Method: Exam Exam Vital Signs Date Time Temp Pulse Resp B/P (MAP) Pulse Ox O2 Delivery O2 Flow Rate FiO2 05/05/20 02:31 72 120/61 05/05/20 01:00 72 05/05/20 00:00 98 Room Air 05/05/20 00:00 37.1 05/04/20 23:00 64 28 120/61 (80) 97 Room Air 05/04/20 22:00 72 22 125/63 (83) 97 Room Air 05/04/20 21:00 75 19 121/69 (86) 98 Room Air 05/04/20 20:00 37.2 86 18 139/70 (93) 97 Room Air 05/04/20 20:00 98 Room Air 05/04/20 19:00 80 05/04/20 19:00 86 28 122/74 (90) 96 Room Air 05/04/20 18:54 80 110/65 05/04/20 18:00 80 11 110/65 (80) 96 Room Air 05/04/20 17:00 100 16 134/72 (92) 96 Room Air 05/04/20 16:00 66 19 125/62 (83) 98 Room Air 05/04/20 16:00 98 Room Air 05/04/20 15:00 64 12 115/72 (86) 97 Room Air 05/04/20 14:30 81 121/60 (80) 98 Room Air 05/04/20 14:15 64 18 120/77 (91) 98 Room Air 05/04/20 14:00 65 19 125/69 (87) 97 Room Air 05/04/20 13:45 65 19 119/79 (92) 96 Room Air 05/04/20 13:30 66 19 123/66 (85) 95 Room Air 05/04/20 13:00 73 05/04/20 12:00 37.0 05/04/20 11:00 66 9 122/96 (105) 96 Room Air 05/04/20 10:00 69 16 112/59 (76) 94 Room Air 05/04/20 09:00 68 11 98/51 (67) 94 Room Air 05/04/20 08:00 98 Room Air 05/04/20 08:00 Room Air 05/04/20 08:00 70 28 110/88 (95) 96 Room Air 05/04/20 07:45 37.2 05/04/20 07:00 60 26 94/50 (65) 98 Room Air 05/04/20 07:00 71 05/04/20 06:00 62 20 102/63 (76) 96 Room Air 05/04/20 05:00 61 18 97/64 (75) 96 Room Air 05/04/20 04:00 98 Room Air 05/04/20 04:00 65 13 105/61 (76) 95 Room Air 05/04/20 03:31 36.9 I & O 05/05/20 07:00 Intake Total 2690 ml Output Total 3100 ml Balance -410 ml Height & Weight Height: '" Weight: lbs. oz. kg; 25.37 BMI Method: General Appearance: No Apparent Distress, WD/WN HEENT: PERRL/EOMI, Moist Mucous Membranes; No Scleral Icterus (L), No Scleral Icterus (R) Neck: Normal Inspection, Non Tender, Supple; No Carotid Bruit Respiratory: Chest Non Tender, Lungs Clear, Normal Breath Sounds, No Accessory Muscle Use, No Respiratory Distress Cardiovascular: Regular Rate, Rhythm, No Murmur Capillary Refill: Less Than 3 Seconds Peripheral Pulses: 2+ Carotid (R), 2+ Carotid (L), 2+ Dorsalis Pedis (R), 2+ Left Dors-Pedis (L), 2+ Radial Pulses (R), 2+ Radial Pulses (L) Gastrointestinal: non tender, soft, no organomegaly, no pulsatile mass Extremity: Normal Inspection, Non Tender, No Calf Tenderness, No Pedal Edema Neurologic/Psychiatric: Alert, Oriented x3, Normal Mood/Affect Skin: Normal Color, Warm/Dry Results Lab Laboratory Tests 05/03/20 14:55 05/04/20 03:45 Assessment/Plan Assessment/Plan Acute CP r/o USA -- CP improved with Nitro -resolved -Troponin neg x 2, 3rd troponin elevated -PCI-A by Dr. Coe, subtotal occlusion in 2nd OM artery, 2 drug eluting stents placed -Overnight Integrilin -will get start on dual antiplatelet and f/u with outpatient cardiology -Currently on Hep and nitro gtt . -Currently on RA HX of CAD JOSE ANGEL ROLON DO 05/05/20 0521: Assessment/Plan Assessment/Plan Acute CP r/o USA -- CP improved with Nitro -resolved -Troponin neg x 2, 3rd troponin elevated -PCI-A by Dr. Coe, subtotal occlusion in 2nd OM artery, 2 drug eluting stents placed -Overnight Integrilin -Currently on RA HX of CAD Supervisory-Addendum Brief Verification & Attestation Participated in pt care: history, MDM, physical Personally performed: exam, history, MDM, supervision of care Care discussed with: Medical Student Procedures: n/a Verification and Attestation of Medical Student E/M Service A medical student performed and documented this service in my presence. I reviewed and verified all information documented by the medical student and made modifications to such information, when appropriate. I personally performed the physical exam and medical decision making. Jose Angel Rolon, May 05, 2020,05:20 JANE HEAD MED STUDENT May 05, 2020 03:33 JOSE ANGEL ROLON DO May 05, 2020 05:21
[2020-05-05 03:35] LABS: BASOPHILS % (AUTO) 0 % (0-10); EOSINOPHILS # (AUTO) 0.2 10^3/uL (0.0-0.3); EOSINOPHILS % (AUTO) 2 % (0-10); HEMATOCRIT 41 % (40-54); HEMOGLOBIN 13.5 g/dL (13.3-17.7); LYMPHOCYTES # (AUTO) 0.8 10^3/uL (1.0-4.0); LYMPHOCYTES % (AUTO) 8 % (12-44); MEAN CORPUSCULAR HEMOGLOBIN 30 pg (25-34); MEAN CORPUSCULAR HGB CONC 33 g/dL (32-36); MEAN CORPUSCULAR VOLUME 89 fL (80-99); MEAN PLATELET VOLUME 9.5 fL (9.0-12.2); MONOCYTES # (AUTO) 1.1 10^3/uL (0.0-1.0); MONOCYTES % (AUTO) 11 % (0-12); NEUTROPHILS # (AUTO) 8.2 10^3/uL (1.8-7.8); NEUTROPHILS % (AUTO) 79 % (42-75); PLATELET COUNT 271 10^3/uL (130-400); WHITE BLOOD COUNT 10.3 10^3/uL (4.3-11.0)
[2020-05-05 03:43] LABS: CHLORIDE 107 MMOL/L (98-107); POTASSIUM 3.6 MMOL/L (3.6-5.0); SODIUM 138 MMOL/L (135-145)
[2020-05-05 03:44] LABS: CALCIUM 8.6 MG/DL (8.5-10.1)
[2020-05-05 03:45] LABS: GLUCOSE 96 MG/DL (70-105)
[2020-05-05 03:46] LABS: CARBON DIOXIDE 20 MMOL/L (21-32)
[2020-05-05 03:48] LABS: PHOSPHORUS 2.6 MG/DL (2.3-4.7)
[2020-05-05 03:49] LABS: CREATININE SERUM 0.92 MG/DL (0.60-1.30); GFR ESTIMATED > 60
[2020-05-05 03:50] LABS: BUN/CREATININE RATIO 14
[2020-05-05] MEDS ORDERED: POTASSIUM CL 10MEQ/50ML IVPB 50 ML IV SCH (05:30)
[2020-05-05] MEDS ORDERED: ASPIRIN E.C. 81 MG (ECOTRIN) TAB PO SCH (09:00)
[2020-05-05] MEDS ORDERED: KCL 20 MEQ TAB (K-DUR) PO ONE (09:00)
[2020-05-05] MEDS ORDERED: PANTOPRAZOLE 40 MG (PROTONIX) VIAL IV SCH (09:00)
[2020-05-05] MEDS: TICAGRELOR 90 MG TABLET (BRILINTA) PO SCH (09:23)
[2020-05-05] MEDS ORDERED: ASPI-1238 PO (10:06)
[2020-05-05] MEDS ORDERED: NAPR220T66 PO (10:06)
--- NOTE | 2020-05-05 10:38 | NUR ---
SPOKE WITH THE PT TO COMPLETE THE MED REC PT DENIES TAKING ANY PRESCRIPTION MEDICATION OTC MEDS: ASPIRIN [address] ALEVE PRN
[2020-05-05] MEDS ORDERED: ATOR80TA76 PO (12:23)
[2020-05-05] MEDS ORDERED: TICA90TA PO (12:23)
[2020-05-05] MEDS ORDERED: LISI10TA2 PO (12:23)
[2020-05-05] MEDS ORDERED: MTP25TSR PO (12:23)
--- NOTE | 2020-05-05 17:49 | Discharge Summary ---
Discharge Summary Hospital Course Was the Problem List Reviewed?: Yes Problems/Dx: (1) NSTEMI (non-ST elevation myocardial infarction) Status: Acute (2) CAD (coronary artery disease) Status: Acute Qualifiers: Qualified Codes: I25.118 - Atherosclerotic heart disease of [place] coronary artery with other forms of angina pectoris (3) S/P coronary artery stent placement Status: Acute Hospital Course Date of Admission: May 03, 2020 at 19:38 Admission Diagnosis : NSTEMI Family Physician/Provider: No,Local Physician Date of Discharge: 05/05/20 Discharge Diagnosis: NSTEMI Hospital Course: Marcin Maxwell is an 79-year-old male with history of coronary artery disease who presented with chest pain and was admitted with a non-ST elevation myocardial in [facility]. Cardiology was consulted and assisted with his care. His initial troponin was negative but ended up increasing to a peak of 10. He was taken for left heart catheterization which revealed a that the left circumflex had a blocked OM2 branch. Two drug-eluting stents were placed. He should continue aspirin. He was started on Brilinta, Lipitor, metoprolol, and lisinopril. He should follow-up with cardiology and his primary care physician as scheduled. He was discharged home in stable condition. Labs and Pending Lab Test: Laboratory Tests 05/05/20 02:49: White Blood Count 10.3, Red Blood Count 4.53, Hemoglobin 13.5, Hematocrit 41, Mean Corpuscular Volume 89, Mean Corpuscular Hemoglobin 30, Mean Corpuscular He moglobin Concent 33, Red Cell Distribution Width 15.0H, Platelet Count 271, Mean Platelet Volume 9.5, Immature Granulocyte % (Auto) 0, Neutrophils (%) (Auto) 79H , Lymphocytes (%) (Auto) 8L, Monocytes (%) (Auto) 11, Eosinophils (%) (Auto) 2, Basophils (%) (Auto) 0, Neutrophils # (Auto) 8.2H, Lymphocytes # (Auto) 0.8L, Monocytes # (Auto) 1.1H, Eosinophils # (Auto) 0.2, Basophils # (Auto) 0.0, Immature Granulocyte # (Auto) 0.0, Sodium Level 138, Potassium Level 3.6, Chloride Level 107, Carbon Dioxide Level 20L, Anion Gap 11, Blood Urea Nitrogen 13, Creatinine 0.92, Estimat Glomerular Filtration Rate > 60, BUN/Creatinine Ratio 14, Glucose Level 96, Calcium Level 8.6, Phosphorus Level 2.6, Magnesium Level 2.0, Troponin I 8.412*H Microbiology 05/03/20 MRSA Screen - Final, Complete MRSA not isolated Home Meds Active Atorvastatin Calcium 80 Mg Tablet 80 Mg PO DAILY Metoprolol Succinate 25 Mg Tab.er.24h 25 Mg PO DAILY 30 Days Lisinopril 10 Mg Tablet 5 Mg PO DAILY 30 Days Brilinta (Ticagrelor) 90 Mg Tablet 90 Mg PO BID 30 Days Reported Aleve (Naproxen Sodium) 220 Mg Tablet 220-440 Mg PO Q8H PRN Aspirin EC (Aspirin) 81 Mg Tablet.dr 81 Mg PO HS Assessment/Pt Instructions Take medications as prescribed. Follow-up with cardiology and your primary care physician. Return with worsening chest pain or if you feel like you're getting worse. Discharge Planning: <30 minutes discharge planning Discharge Instructions Discharge Diet: Low Sodium Diet Activity as Tolerated: Yes Consultations cardiology Discharge Physical Examination Vital Signs Vital Signs Date Time Temp Pulse Resp B/P (MAP) Pulse Ox O2 Delivery O2 Flow Rate FiO2 05/05/20 14:15 37.0 75 11 136/79 96 Room Air General Appearance: No Apparent Distress, WD/WN Respiratory: Lungs Clear, Normal Breath Sounds, No Respiratory Distress Cardiovascular: Regular Rate, Rhythm, No Edema, No Murmur Gastrointestinal: Normal Bowel Sounds, Non Tender, Soft Extremity: Normal Inspection, Non Tender, No Pedal Edema Skin: Normal Color, Warm/Dry Neurologic/Psychiatric: Alert, Oriented x3, No Motor/Sensory Deficits, Normal Mood/Affect Allergies: Uncoded Allergies: Pencillin (Adverse Reaction, Mild, rash, 05/03/20) Discharge Summary Date of Admission May 03, 2020 at 19:38 Date of Discharge May 05, 2020 at 13:00 Discharge Date: May 05, 2020 Discharge Time: 13:00 Admission Diagnosis Chest pain Consults/Procedures Consulations cardiology Procedures left heart catheterization with coronary stent placement Discharge Diagnosis (1) NSTEMI (non-ST elevation myocardial infarction) Status: Acute (2) CAD (coronary artery disease) Status: Acute Qualifiers: Qualified Codes: I25.118 - Atherosclerotic heart disease of [place] coronary artery with other forms of angina pectoris (3) S/P coronary artery stent placement Status: Acute Clinical Quality Measures AMI/AHF: ASA po Prior to arrival: Yes DVT/VTE Risk/Contraindication: Risk Factor Score Per Nursin RFS Level Per Nursing on Admit: 4+=Very High EUGENIO RAMIREZ MD May 05, 2020 17:48
--- NOTE | 2020-05-05 19:54 | Cardiology Progress Note ---
Cardiology SOAP Progress Note Subjective: no chest pain Objective: I&O/Vital Signs 05/05/20 05/05/20 05/05/20 05/05/20 08:00 08:00 08:00 09:00 Temp 37.0 Pulse 75 86 Resp 11 10 B/P (MAP) 117/63 (81) 125/70 (88) Pulse Ox 95 98 95 O2 Delivery Room Air Room Air Room Air 05/05/20 05/05/20 05/05/20 05/05/20 10:00 11:00 11:16 14:15 Temp 37.0 Pulse 73 75 75 Resp 10 11 11 B/P (MAP) 119/85 (96) 136/79 (98) 136/79 Pulse Ox 95 97 96 96 O2 Delivery Room Air Room Air Room Air Room Air 05/05/20 00:00 Intake Total 1490 ml Output Total 2200 ml Balance -710 ml Constitutional: appears stated age, AAO x 3; No apparent distress; well- developed, well-nourished Respiratory: chest is bilaterally symmetric, lungs clear to auscultation Cardiovascular: regular rate-rhythm, S1 and S2; No diastolic murmur, No systolic murmur Gastrointestional: soft, audible bowel sounds; No spleenomegaly Extremities: normal range of motion, non-tender, normal inspection; No clubbing, No cyanosis; no lower extremity edema bilateral; No significant edema Neurologic/Psychiatric: no motor/sensory deficits, alert, normal mood/affect, oriented x 3, power is 5/5 both on sides Skin: normal color; No rash, No ulcerations Results/Procedures: Labs Laboratory Tests 05/05/20 02:49: White Blood Count 10.3, Red Blood Count 4.53, Hemoglobin 13.5, Hematocrit 41, Mean Corpuscular Volume 89, Mean Corpuscular Hemoglobin 30, Mean Corpuscular Hemoglobin Concent 33, Red Cell Distribution Width 15.0H, Platelet Count 271, Mean Platelet Volume 9.5, Immature Granulocyte % (Auto) 0, Neutrophils (%) (Auto) 79H, Lymphocytes (%) (Auto) 8L, Monocytes (%) (Auto) 11, Eosinophils (%) (Auto) 2, Basophils (%) (Auto) 0, Neutrophils # (Auto) 8.2H, Lymphocytes # (Auto) 0.8L, Monocytes # (Auto) 1.1H, Eosinophils # (Auto) 0.2, Basophils # (Auto) 0.0, Immature Granulocyte # (Auto) 0.0, Sodium Level 138, Potassium Level 3.6, Chloride Level 107, Carbon Dioxide Level 20L, Anion Gap 11, Blood Urea Nitrogen 13, Creatinine 0.92, Estimat Glomerular Filtration Rate > 60, BUN/Creatinine Ratio 14, Glucose Level 96, Calcium Level 8.6, Phosphorus Level 2.6, Magnesium Level 2.0, Troponin I 8.412*H Microbiology 05/03/20 MRSA Screen - Final, Complete MRSA not isolated A/P: Assessment/Dx: non-STEMI, Plan: NSTEMI - coronary angiography on 05/04/2020 ; two drug eluting stents to OM1 severe stenosis with haziness suggesting thrombus. PCI resulted in distal embolization and slow flow. treated with IC cardene and IV integrillin overnight. no further chest pain. no issues with ambulating. Dual antiplatelet therapy, statin, BB and Brando inhibitor. We will setup appointment with outpatient boiler operator helper. Thank you for your consultation. Please call me if you have any questions. William Jimenez MD, FACP, FACC, FSCAI, FHRS, CCDS Interventional Cardiology Cardiac Electrophysiology Vascular Medicine and Endovascular Interventions Clinical Quality Measures AMI/AHF: ASA po Prior to arrival: Yes Melinda JIMENEZ MD May 05, 2020 19:54
== END 2020-05-05 13:00 | disposition home or self-care (01) | DRG 247 ==
LOC: ER FS 14:38 → ICU 19:38
PROVIDERS: ADMIT Family Medicine; ATTEND Family Medicine
PROC: 027035Z Dilation of Coronary Artery, One Artery with Two Drug-eluting Intraluminal Devices, Percutaneous Approach (ICD-10-PCS; principal; 2020-05-04)
PROC: 4A023N7 Measurement of Cardiac Sampling and Pressure, Left Heart, Percutaneous Approach (ICD-10-PCS; 2020-05-04)
PROC: B2111ZZ Fluoroscopy of Multiple Coronary Arteries using Low Osmolar Contrast (ICD-10-PCS; 2020-05-04)
DX: I21.4 Non-ST elevation (NSTEMI) myocardial infarction (principal); I25.110 Atherosclerotic heart disease of native coronary artery with unstable angina pectoris; T82.855D Stenosis of coronary artery stent, subsequent encounter; E78.00 Pure hypercholesterolemia, unspecified; E11.9 Type 2 diabetes mellitus without complications; I10 Essential (primary) hypertension; Z95.5 Presence of coronary angioplasty implant and graft
CPT/HCPCS: 36415; 71045; 80048; 80053; 83690; 83735; 83880; 84100; 84484; 85025; 85610; 85730; 87081; 93005; 93041; 93306; 93458

== ENCOUNTER → 2020-07-10 | Outpatient (CLI) | payer MEDICARE ==
[~2020-07-10] MED LIST: ASPI-1238 PO; ATOR80TA76 PO; LISI10TA2 PO; MTP25TSR PO; NAPR220T66 PO; TICA90TA PO
[2020-07-10 15:33] LABS: ALANINE AMINOTRANSFERASE 17 U/L (0-55); ALKALINE PHOSPHATASE 102 U/L (40-136); BILIRUBIN,TOTAL 0.7 MG/DL (0.1-1.0); BUN/CREATININE RATIO 22; CALCIUM 9.3 MG/DL (8.5-10.1); CARBON DIOXIDE 27 MMOL/L (21-32); CHLORIDE 103 MMOL/L (98-107); CREATININE SERUM 1.14 MG/DL (0.60-1.30); GFR ESTIMATED > 60; GLUCOSE 91 MG/DL (70-105); POTASSIUM 4.1 MMOL/L (3.6-5.0); SODIUM 140 MMOL/L (135-145); TOTAL PROTEIN 6.9 GM/DL (6.4-8.2)
[2020-07-10 15:34] LABS: ALBUMIN 4.1 GM/DL (3.2-4.5)
[2020-07-11 14:50] LABS: CHOLESTEROL 87 MG/DL (< 200); HDL CHOLESTEROL 27 MG/DL (40-60); TRIGLYCERIDES 112 MG/DL (<150); VLDL CHOLESTEROL 22 MG/DL (5-40)
== END ==
LOC: LAB FS 14:24
PROVIDERS: ATTEND Internal Medicine Cardiovascular Disease
DX: I25.10 Atherosclerotic heart disease of native coronary artery without angina pectoris (principal)
CPT/HCPCS: 36415; 80053; 80061

== ENCOUNTER 2021-06-23 15:46 | Emergency (ER) | payer MEDICARE ==
[~2021-06-23] VITALS: Ht 180 cm; Wt 80.0 kg
[~2021-06-23 15:46] MED LIST changes: -LISI10TA2 PO; +LISI10TA25 PO
--- NOTE | 2021-06-23 16:10 | ED GI ---
General Stated Complaint: ABD PAIN Source of Information: Patient History of Present Illness Date Seen by Provider: Jun 23, 2021 Time Seen by Provider: 15:50 Initial Comments 80-year-old male presenting with complaints of over 2 weeks of abdominal distention and gas pains. He states that his belly has been distended and at times is hard as a rock. He has gas that causes him to belch and he does not feel pain without but when he goes to pass gas as the gas moves through the left side of his belly before coming out his rectum he has severe pain 10 out of 10 across his lower abdomen that makes him want to double over. He denies any fever or chills. He has had no nausea, vomiting, dark tarry stool, pain with urination, blood in his urine, diarrhea, constipation. He states that he felt like the symptoms started after she had recovered from Covid in April. He reports trying multiple [id number]-slq-ktztrgs things for his belly but nothing had made a difference. He does not have a primary care provider and has not tried to follow-up with anybody about the symptoms. He states he has had a colonoscopy over 3 years ago. He reports that they never told him there was anything to be concerned about. Timing/Duration: Other (2 weeks) Activities at Onset: None Modifying Factors: Improves With Other Associated Symptoms: No Back Pain, No Chest Pain, No Diaphoresis, No Fe jj/Chills, No Fatigue, No Headache, No Heartburn, No Nausea/Vomiting, No Rash, No Shortness of Air; Swelling/Mass in Abdomen; No Syncope, No Weakness Allergies and Home Medications Allergies Uncoded Allergies: Pencillin (Adverse Reaction, Mild, rash, 05/03/20) Patient Home Medication List Home Medication List Reviewed: Yes Aspirin (Aspirin EC) 81 Mg Tablet.dr, 81 MG PO HS, (Reported) Entered as Reported by: TERESA ORTIZ on 05/05/20 1006 Atorvastatin Calcium (Atorvastatin Calcium) 80 Mg Tablet, 80 MG PO DAILY Prescribed by: TIFFANY MARCOS on 05/05/20 1223 Lisinopril (Lisinopril) 10 Mg Tablet, 5 MG PO DAILY Prescribed by: TIFFANY MARCOS on 05/05/20 1223 Metoprolol Succinate (Metoprolol Succinate) 25 Mg Tab.er.24h, 25 MG PO DAILY Prescribed by: TIFFANY MARCOS on 05/05/20 1223 Naproxen Sodium (Aleve) 220 Mg Tablet, 220-440 MG PO Q8H PRN for PAIN-MILD (1- 4), (Reported) Entered as Reported by: TERESA ORTIZ on 05/05/20 1006 Ticagrelor (Brilinta) 90 Mg Tablet, 90 MG PO BID Prescribed by: TIFFANY MARCOS on 05/05/20 1223 Review of Systems Review of Systems Constitutional: No chills, No fever, No malaise EENTM: No Symptoms Reported Respiratory: No Symptoms Reported Cardiovascular: No Symptoms Reported Gastrointestinal: See HPI, Abdomen Distended, Abdominal Pain (At times has an aching pain on the right side, has severe lower abdominal pain when he goes to pass gas) Genitourinary: No Symptoms Reported; Denies Burning, Denies Discharge, Denies Frequency, Denies Flank Pain, Denies Hematuria, Denies Incontinence, Denies Pain, Denies Urgency Musculoskeletal: no symptoms reported Skin: No rash Psychiatric/Neurological: Denies Headache Past Znjvkoz-Hdmujx-Tbnmsn Hx Seasonal Allergies Seasonal Allergies: No Past Medical History Surgery/Hospitalization HX: CAD with stents, Covid April 2021. Surgeries: Yes Coronary Stent Respiratory: No Cardiac: No Coronary Artery Disease Neurological: No Genitourinary: No Gastrointestinal: No Musculoskeletal: No Endocrine: No HEENT: No Cancer: No Psychosocial: No Integumentary: No Blood Disorders: No Physical Exam Vital Signs Vital Signs - First Documented 06/23/21 19:11 Temp 36.5 Pulse 86 Resp 16 B/P (MAP) 149/83 (105) Pulse Ox 96 O2 Delivery Room Air Capillary Refill : Height/Weight/BMI Height: '" Weight: lbs. oz. kg; 25.37 BMI Method: General Appearance: WD/WN, no apparent distress HEENT: pharynx normal Neck: non-tender, full range of motion, supple, normal inspection Respiratory: chest non-tender, lungs clear, normal breath sounds, no respiratory distress, no accessory muscle use Cardiovascular: normal peripheral pulses, regular rate, rhythm Gastrointestinal: normal bowel sounds, soft, no pulsatile mass, distended; No guarding, No rebound; tenderness (mild tenderness to palpation right flank) Rectal: deferred Extremities: normal range of motion, non-tender, normal capillary refill Back: no CVA tenderness 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, alert, oriented x 3 Skin: normal color, warm/dry Images 1 - mild pain to palpation right flank Progress/Results/Core Measures Results/Orders Lab Results Laboratory Tests Test 06/23/21 16:15 Range/Units White Blood Count 9.6 4.3-11.0 10^3/uL Red Blood Count 3.95 L 4.30-5.52 10^6/uL Hemoglobin 11.1 L 13.3-17.7 g/dL Hematocrit 34 L 40-54 % Mean Corpuscular Volume 85 80-99 fL Mean Corpuscular Hemoglobin 28 25-34 pg Mean Corpuscular Hemoglobin Concent 33 32-36 g/dL Red Cell Distribution Width 14.6 H 10.0-14.5 % Platelet Count 690 H 130-400 10^3/uL Mean Platelet Volume 8.5 L 9.0-12.2 fL Immature Granulocyte % (Auto) 0 % Neutrophils (%) (Auto) 80 H 42-75 % Lymphocytes (%) (Auto) 10 L 12-44 % Monocytes (%) (Auto) 9 0-12 % Eosinophils (%) (Auto) 1 0-10 % Basophils (%) (Auto) 1 0-10 % Neutrophils # (Auto) 7.6 1.8-7.8 X 10^3 Lymphocytes # (Auto) 1.0 1.0-4.0 X 10^3 Monocytes # (Auto) 0.8 0.0-1.0 X 10^3 Eosinophils # (Auto) 0.1 0.0-0.3 10^3/uL Basophils # (Auto) 0.1 0.0-0.1 10^3/uL Immature Granulocyte # (Auto) 0.0 0.0-0.1 10^3/uL Sodium Level 139 135-145 MMOL/L Potassium Level 3.8 3.6-5.0 MMOL/L Chloride Level 101 98-107 MMOL/L Carbon Dioxide Level 27 21-32 MMOL/L Anion Gap 11 5-14 MMOL/L Blood Urea Nitrogen 20 H 7-18 MG/DL Creatinine 1.06 0.60-1.30 MG/DL Estimat Glomerular Filtration Rate 67 BUN/Creatinine Ratio 19 Glucose Level 120 H 70-105 MG/DL Calcium Level 8.7 8.5-10.1 MG/DL Corrected Calcium 9.2 8.5-10.1 MG/DL Total Bilirubin 0.5 0.1-1.0 MG/DL Aspartate Amino Transf (AST/SGOT) 19 5-34 U/L Alanine Aminotransferase (ALT/SGPT) 12 0-55 U/L Alkaline Phosphatase 120 40-136 U/L Total Protein 7.2 6.4-8.2 GM/DL Albumin 3.4 3.2-4.5 GM/DL Lipase 67 8-78 U/L My Orders Orders - CHAPIS CAMPOS MD Comprehensive Metabolic Panel (06/23/21 16:10) Lipase (06/23/21 16:10) Ed Iv/Invasive Line Start (06/23/21 16:10) Cbc With Automated Diff (06/23/21 16:10) Ct Abdomen/Pelvis W (06/23/21 16:10) Ns Iv 1000 Ml (Sodium Chloride 0.9%) (06/23/21 16:11) Iohexol Injection (Omnipaque 350 Mg/Ml 1 (06/23/21 16:45) Received Contrast (Hold Metformin- Contr (06/23/21 16:45) Sodium Chloride Flush (Catheter Flush Sy (06/23/21 16:45) Ns (Ivpb) (Sodium Chloride 0.9% Ivpb Bag (06/23/21 16:45) Medications Given in ED Current Medications Medications Dose Ordered Sig/Susie Route Start Time Stop Time Status Last Admin Dose Admin Iohexol 100 ml ONCE ONCE IV 06/23/21 16:45 06/23/21 16:46 DC 06/23/21 17:01 100 ML Sodium Chloride 10 ml NEEDED PRN IV 06/23/21 16:45 06/23/21 19:18 DC 06/23/21 17:01 10 ML Sodium Chloride 100 ml ONCE ONCE IV 06/23/21 16:45 06/23/21 16:46 DC 06/23/21 17:01 100 ML Vital Signs/I&O 06/23/21 06/23/21 19:11 19:11 Temp 36.5 36.5 Pulse 86 86 Resp 16 B/P (MAP) 149/83 (105) 149/83 Pulse Ox 96 O2 Delivery Room Air Progress Progress Note #1: Progress Note Obtain basic labs including liver enzymes and lipase. Give IV fluids for hydration. CT scan of the abdomen and pelvis to evaluate his abdominal distention and complaints of pain. Patient reports he has no pain at the moment. He feels that he has too much gas and is wanting to know what he should take for that. Progress Note #2: Progress Note Labs appear stable without acute significant abnormality. His liver enzymes were not elevated. His CT scan of the abdomen and pelvis did show possible mass in the right colon and ascites with omental caking concerning for metastatic disease. Suggested colonoscopy to correlate data. When I reviewed the results with the patient and his friend I advised him that he would need to see a surgeon in the very near future so that they could urgently help manage this and diagnose what looks like a colon cancer with spread to the fatty layer of tissues in the belly. Advised to call and get in with surgeon within the next 2 weeks. Given number for the 3 surgeons in [place]. Counseled that he needs to do this as soon as possible. Counseled on return precautions. Diagnostic Imaging Diagonstic Imaging: CT Plain Films/CT/US/NM/MRI: abdomen, pelvis Comments [facility]. [place], [place] NAME: CHAITANYA MILLER [facility] REC#: [id number] PT STATUS: REG ER : 1940 PHYSICIAN: CHAPIS CAMPOS MD ADMIT DATE: 06/23/21/ER FS Signed Date of Exam:06/23/21 CT ABDOMEN/PELVIS W INDICATION: Diffuse abdominal pain and distention x2 weeks TECHNIQUE: Multiple contiguous axial images were obtained through the abdomen and pelvis after administration of intravenous contrast. Auto Exposure Controls were utilized during the CT exam to meet ALARA standards for radiation dose reduction. All CT scans use one or more of the following dose optimizing techniques: automated exposure control, MA and/or KvP adjustment based on patient size and exam type or iterative reconstruction. There is no prior study for comparison. Visualized portions of the lung bases show some dependent atelectatic changes. There is no pleural fluid collection. There is no free intraperitoneal air. The liver shows no discrete focal lesion. Spleen and adrenals and kidneys appear unremarkable, except for tiny cyst in the right kidney. The pancreas shows no focal lesion. There is a moderate amount of ascites present. There is diffuse thickening and nodularity of the omentum, suspicious for omental metastatic disease. There is atherosclerotic change of the aorta without evidence of aneurysm. There is some thickening and irregularity of the cecum, raising the possibility of cecal neoplasm, suggest correlation with colonoscopy. IMPRESSION: There is diffuse ascites present. There is diffuse abnormal thickening and irregularity of the omentum compatible with "omental caking", suspicious for omental metastatic disease. There does appear to be thickening and irregularity of the right colon and cecum, raising the possibility of colonic neoplasm. Suggest correlation with colonoscopy. Dictated by: Dictated on workstation # [id number] Dict: 06/23/21 1717 Trans: 06/23/21 1835 [facility] [id number] Interpreted by: SHNAAE GARBER MD Electronically signed by: SHANAE GARBER MD 06/23/211834 Reviewed: Reviewed by Me Departure Impression Primary Impression: Mass of colon Additional Impressions: Abdominal ascites Qualified Codes: R18.8 - Other ascites Mass of omentum Disposition: HOME, SELF-CARE Condition: Stable Departure-Patient Inst. Decision time for Depature: 18:51 Referrals: JOSHUA BURKS BRETT D DO KIDO, TAKAAKI MD NO,LOCAL PHYSICIAN (PCP) Primary Care Physician Patient Instructions: Flank Pain ED, Fluid in the Belly (Ascites) (DC) Add. Discharge Instructions: The CT scan showed a possible mass on the right colon along with ascites which is fluid buildup in your abdomen. It also looks like the omentum, which is a thin layer of fatty tissue in the belly, was thickened and had a masslike appearance as well. These findings are concerning for colon cancer with a possible metastatic spread in the abdomen. You need to call and get set up with a surgeon as soon as possible to evaluate this. They may want to do a colonoscopy to look for a biopsy of the mass in your colon or they may do a surgical procedure to access your abdomen and look at the fluid and mass that way. Once they can have some tissue or something to look at and noted with this is cancer and what is causing it they could know how to treat you for this. You may need to see a cancer doctor or you may need surgery to remove the mass and part of your colon. You need to be seen in the clinic within the next 1 to 2 weeks so you can have this checked into further. If you develop uncontrollable nausea and vomiting, are not passing gas or having bowel movements, or you are having severe abdominal pain that you can not get to stop then you need to be checked again. If these things happen it is possible you could have a bowel obstruction. CHAPIS CAMPOS MD Jun 23, 2021 16:09
[2021-06-23] MEDS ORDERED: NS IV 1000 ML 1,000 ML IV STA (16:11)
[2021-06-23 16:27] LABS: HEMATOCRIT 34 % (40-54); HEMOGLOBIN 11.1 g/dL (13.3-17.7); MEAN CORPUSCULAR HEMOGLOBIN 28 pg (25-34); MEAN CORPUSCULAR HGB CONC 33 g/dL (32-36); MEAN CORPUSCULAR VOLUME 85 fL (80-99); MEAN PLATELET VOLUME 8.5 fL (9.0-12.2); PLATELET COUNT 690 10^3/uL (130-400); WHITE BLOOD COUNT 9.6 10^3/uL (4.3-11.0)
[2021-06-23 16:28] LABS: BASOPHILS # (AUTO) 0.1 10^3/uL (0.0-0.1); BASOPHILS % (AUTO) 1 % (0-10); EOSINOPHILS # (AUTO) 0.1 10^3/uL (0.0-0.3); EOSINOPHILS % (AUTO) 1 % (0-10); LYMPHOCYTES % (AUTO) 10 % (12-44); MONOCYTES # (AUTO) 0.8 X 10^3 (0.0-1.0); MONOCYTES % (AUTO) 9 % (0-12); NEUTROPHILS # (AUTO) 7.6 X 10^3 (1.8-7.8); NEUTROPHILS % (AUTO) 80 % (42-75)
[2021-06-23] MEDS ORDERED: CATHETER FLUSH 10 ML SYR IV PRN (16:45)
[2021-06-23] MEDS ORDERED: IOHEXOL 350 MG/ML 100 ML (OMNIPAQUE 350) VIAL IV ONE (16:45)
[2021-06-23] MEDS ORDERED: HOLD METFORMIN - RECEIVED CONTRAST 20 ML VIAL IV SCH (16:45)
[2021-06-23] MEDS ORDERED: NS 100 ML (IVPB) BAG IV ONE (16:45)
[2021-06-23 16:47] LABS: CALCIUM 8.7 MG/DL (8.5-10.1); CREATININE SERUM 1.06 MG/DL (0.60-1.30); POTASSIUM 3.8 MMOL/L (3.6-5.0)
[2021-06-23 16:48] LABS: ALBUMIN 3.4 GM/DL (3.2-4.5); BILIRUBIN,TOTAL 0.5 MG/DL (0.1-1.0); TOTAL PROTEIN 7.2 GM/DL (6.4-8.2)
--- NOTE | 2021-06-23 17:25 | Diagnostic Imaging Report ---
INDICATION: Diffuse abdominal pain and distention x2 weeks TECHNIQUE: Multiple contiguous axial images were obtained through the abdomen and pelvis after administration of intravenous contrast. Auto Exposure Controls were utilized during the CT exam to meet ALARA standards for radiation dose reduction. All CT scans use one or more of the following dose optimizing techniques: automated exposure control, MA and/or KvP adjustment based on patient size and exam type or iterative reconstruction. There is no prior study for comparison. Visualized portions of the lung bases show some dependent atelectatic changes. There is no pleural fluid collection. There is no free intraperitoneal air. The liver shows no discrete focal lesion. Spleen and adrenals and kidneys appear unremarkable, except for tiny cyst in the right kidney. The pancreas shows no focal lesion. There is a moderate amount of ascites present. There is diffuse thickening and nodularity of the omentum, suspicious for omental metastatic disease. There is atherosclerotic change of the aorta without evidence of aneurysm. There is some thickening and irregularity of the cecum, raising the possibility of cecal neoplasm, suggest correlation with colonoscopy. IMPRESSION: There is diffuse ascites present. There is diffuse abnormal thickening and irregularity of the omentum compatible with "omental caking", suspicious for omental metastatic disease. There does appear to be thickening and irregularity of the right colon and cecum, raising the possibility of colonic neoplasm. Suggest correlation with colonoscopy. Dictated by: Dictated on workstation # [id number]
[2021-06-23 19:11] VITALS: BP 149/83
== END 2021-06-23 17:10 | disposition home or self-care (01) ==
LOC: EDUNIT# 15:46 → ER FS 15:49
DX: K63.89 Other specified diseases of intestine (principal); R18.8 Other ascites; I25.10 Atherosclerotic heart disease of native coronary artery without angina pectoris; Z95.5 Presence of coronary angioplasty implant and graft; Z79.82 Long term (current) use of aspirin
CPT/HCPCS: 36415; 74177; 80053; 83690; 85025

== ENCOUNTER → 2021-07-07 | Outpatient (CLI) | payer MEDICARE ==
[~2021-07-07] MED LIST changes: +ALBUMIN 25% 25 GM/100 ML 100 ML IV ONE
[2021-07-07 11:20] VITALS: BP 140/88
--- NOTE | 2021-07-07 11:48 | Progress Note-Post Operative ---
Post-Operative Progess Note Surgeon (s)/Guard Rail Installer (s) Surgeon JOSHUA BURKS DO Guard Rail Installer: none Pre-Operative Diagnosis Ascites r/o malignancy Post-Operative Diagnosis same pending path Procedure & Operative Findings Date of Procedure 07/07/21 Procedure Performed/Findings Paracentesis The patient was in same day surgery room. US tech came by to find the best place to do the paracentesis and marked the abdomen. Abdomen was then prepped and draped and timeout was performed. Local anesthetic was infiltrated and #11 blade scalpel was used to make a small skin incision. [id number] needle and catheter were then advanced until straw-colored fluid was withdrawn. The catheter was advanced and the needle was removed. A total of 6L of straw-colored fluid was withdrawn. Once done draining, the catheter was removed and sterile bandage was applied. Pt was given albumin per protocol. The patient tolerated procedure well without any complications. He stated he was breathing better right after the first liter came off. Anesthesia Type local lidocaine Estimated Blood Loss Estimated blood loss (mL): scant Specimens/Packing Specimens Removed ascitic fluid, sent for cytology, cell count and cultures JOSHUA BURKS DO Jul 07, 2021 11:48
--- NOTE | 2021-07-07 12:51 | Diagnostic Imaging Report ---
INDICATION: Ascites. FINDINGS: Sonographic interrogation of all four quadrants of the abdomen was performed. There appears to be large abdominal ascites. The largest volume is in the left lower quadrant. This was marked on the patient's skin for performance of a paracentesis by Dr. Dumont. IMPRESSION: Ultrasound guidance for Dr. Dumont for left lower quadrant paracentesis. Dictated by: Dictated on workstation # [id number]
[2021-07-07 14:06] LABS: BODY FLUID APPEARENCE CLEAR; BODY FLUID COLOR YELLOW; BODY FLUID SOURCE PERITON
[2021-07-07 14:07] LABS: BODY FLUID RBC COUNT 703.75 /uL; BODY FLUID WBC TOTAL COUNT 121.25 /uL
[2021-07-07 15:12] LABS: BF OTHER CELLS 16 %; LYMPHOCYTES,BODY FLUID 52 %
== END ==
LOC: SDC 11:15
PROVIDERS: ATTEND Surgery
DX: R18.8 Other ascites (principal)
CPT/HCPCS: 49082; 76942; 87070; 87205; 89051; 96365; 96366

== ENCOUNTER → 2021-07-14 | Outpatient (CLI) | payer MEDICARE ==
[~2021-07-14] MED LIST changes: -ALBUMIN 25% 25 GM/100 ML 100 ML IV ONE
== END ==
LOC: LAB 15:17
PROVIDERS: ATTEND Surgery
DX: K63.89 Other specified diseases of intestine (principal); R19.09 Other intra-abdominal and pelvic swelling, mass and lump
CPT/HCPCS: 36415; 82378